=== PATIENT | female | born 1995 | race African-American/Black ===

== ENCOUNTER 2022-08-21 09:34 | Emergency (ER) | payer OTHER ==
[2022-08-21 09:39] VITALS: TEMP 97.3; BMI 32.9
[2022-08-21] MEDS ORDERED: ACETAMINOPHEN 1000 MG/100 ML BAG IVPB ONE (10:24)
[2022-08-21] MEDS ORDERED: ACETAMINOPHEN INJECTION 100 ML IVPB ONE (10:28)
[2022-08-21 11:25] LABS: BASO % 0.5 % (0-2.0); EOS % 1.2 % (0-4.5); HEMATOCRIT 33.6 % (32.4-45.2); LYMPH % 30.1 % (8-40); MCH 26.1 pg (25.7-33.7); MCHC 32.7 g/dl (32.0-36.0); MEAN PLT VOLUME 8.8 fl (7.5-11.1); MONO % 7.7 % (3.8-10.2); NEUT % 60.5 % (42.8-82.8); PLATELET COUNT 370 10^3/uL (134-434); RDW 17.7 % (11.6-15.6); WHITE BLOOD COUNT 6.3 K/mm3 (4.0-10.0)
[2022-08-21 11:29] LABS: EPI CELLS >36 /uL (0-25.1); HYALINE CASTS 0 /uL (0-3.1); URINE APPEARANCE CLEAR; URINE BACTERIA 601 /uL (0-1359); URINE BILIRUBIN NEGATIVE (NEGATIVE); URINE COLOR YELLOW; URINE GLUCOSE (UA) NEGATIVE (NEGATIVE); URINE KETONE NEGATIVE (NEGATIVE); URINE LEUK ESTERASE NEGATIVE (NEGATIVE); URINE NITRITE NEGATIVE (NEGATIVE); URINE PROTEIN TRACE (NEGATIVE); URINE UROBILINOGEN 0.2 mg/dL (0.2-1.0)
[2022-08-21 11:31] LABS: INR 1.08 (0.83-1.09); PROTHROMBIN TIME (PATIENT) 12.5 SEC (9.7-13.0); URINE RBC 32.8 /uL (0-23.9); URINE WBC 66.6 /uL (0-25.8)
[2022-08-21 11:34] LABS: ACTIVATED PTT 27.1 SECONDS (25.2-36.5)
[2022-08-21] MEDS ORDERED: KETOROLAC TROMETHAMINE 15 MG/ML VIAL IVPUSH ONE (11:36)
[2022-08-21] MEDS ORDERED: KETOROLAC TROMETHAMINE 15 MG/ML VIAL ONE (11:47)
[2022-08-21 11:48] LABS: ALBUMIN 3.7 g/dl (3.4-5.0); CALCIUM 9.4 mg/dL (8.5-10.1)
[2022-08-21 11:50] LABS: BLOOD UREA NITROGEN 16.2 mg/dL (7-18)
[2022-08-21 11:52] LABS: CREATININE 1.2 mg/dL (0.55-1.3)
[2022-08-21 11:54] LABS: BILIRUBIN,TOTAL 0.4 mg/dL (0.2-1); TOT PROT 7.4 g/dl (6.4-8.2)
[2022-08-21 14:12] VITALS: BP 106/70; PULSE 89; RESP 17
== END 2022-08-21 14:44 | disposition home or self-care (01) ==
LOC: JER 09:34
PROC: 3E033NZ Introduction of Analgesics, Hypnotics, Sedatives into Peripheral Vein, Percutaneous Approach (ICD-10-PCS; principal; 2022-08-21)
PROC: 3E033GC Introduction of Other Therapeutic Substance into Peripheral Vein, Percutaneous Approach (ICD-10-PCS; 2022-08-21)
DX: R10.32 Left lower quadrant pain (principal); N39.0 Urinary tract infection, site not specified; R74.01 Elevation of levels of liver transaminase levels
CPT/HCPCS: 36415; 76830-TC; 80053; 81003; 83690; 84703; 85025; 85610; 85730; 86850; 86900; 86901; 87086; 87186; 87491; 87591; 87661; 99284-25